=== PATIENT | female | born 1960 | race Caucasian/White ===

== ENCOUNTER 2016-08-17 11:46 | Emergency (ER) | payer OTHER ==
[~2016-08-17] VITALS: Ht 154.9 cm; Wt 36.8 kg
[~2016-08-17 11:46] MED LIST: ALEVE220 M1 PO; ALEVE220 MG PO; ASPIRIN325 MG PO; CIPRO500 MG PO; COLACE100 MG PO; FLOMAX0.4 MG PO; HYDROCODON-ACE1 EAC7 PO; KEFLEX500 MG PO; KENLAOG,ARISTOC60 ML TP; MOBIC7.5 MG PO; MOTRIN800 MG PO; NAPROSYN500 MG PO; NOHOMEMEDS; OXAYDO5 MG PO; OXYCODONE HCL5 MG PO; PERCOCET 5/31 TABLET PO; TYLENOL WITH C1 EACH PO; VENTOLIN HFA18 GM IH; VICODIN ES 7.51 EAC1 PO; ZOFRAN4 MG PO
[2016-08-17 13:17] LABS: HEMATOCRIT 42.6 % (36.0-46.0); MCH 32.4 PG (29.0-34.0); MCHC 33.6 G/DL (30.0-36.0); MCV 96.6 FL (83-99); PLATELET COUNT 275 K/uL (156-360); RBC DIS.WIDTH-CV 13.6 % (11.8-14.6); RBC DIS.WIDTH-SD 46.8 % (39-53); RED BLOOD COUNT 4.41 M/uL (3.80-5.20); WHITE BLOOD COUNT 9.1 K/uL (4.1-10.2)
[2016-08-17 13:21] LABS: CHLORIDE 108 mEq/L (99-109); POTASSIUM 4.2 mEq/L (3.7-5.4); SODIUM 139 mEq/L (136-147)
[2016-08-17 13:23] LABS: GLUCOSE 84 mg/dL (70-99)
[2016-08-17 13:25] LABS: ANION GAP 11 MEQ/L (2-14); TOTAL BILIRUBIN 0.2 mg/dL (0.0-1.0)
[2016-08-17 13:27] LABS: ALKALINE PHOSPHATASE 79 IU/L (3-129); GFR ESTIMATE (CALCULATED) > 59 mL/min/
[2016-08-17 13:28] LABS: UREA NITROGEN (BUN) 16 mg/dL (9-23)
[2016-08-17 13:29] LABS: DIRECT BILIRUBIN 0.1 mg/dL (0.0-0.3)
[2016-08-17 13:30] LABS: LIPASE 45 U/L (1.0-51.0)
[2016-08-17 13:51] LABS: ADD MIUA? YES; BILIRUBIN NEGATIVE; BLOOD NEGATIVE; COLOR YELLOW ((YELLOW)); GLUCOSE (STRIP) NEGATIVE; KETONES NEGATIVE; LEUKOCYTES TRACE; NITRITE NEGATIVE; PROTEIN (STRIP) NEGATIVE; SPECIFIC GRAVITY 1.018 (1.000-1.030); UROBILINOGEN 0.2 MG/DL (0.2-1.0)
[2016-08-17 14:31] LABS: RED BLOOD CELLS NONE SEEN /HPF (0-5)
[2016-08-17 14:32] LABS: BACTERIA 2+ /HPF; EPITHELIAL CELLS 2+ /HPF; MUCUS NONE SEEN /LPF; UCUL ADDED? YES
[2016-08-17] MEDS ORDERED: KEFLEX500 MG PO (14:54)
[2016-08-17] MEDS ORDERED: MOTRIN800 MG PO (14:54)
[2016-08-17] MEDS ORDERED: VALIUM5 MG PO (14:54)
[2016-08-17 15:20] VITALS: BP 133/82
== END 2016-08-17 15:21 | disposition home or self-care (01) ==
LOC: RME 11:46 → EME 11:46 → RME 15:21
DX: S39.012A Strain of muscle, fascia and tendon of lower back, initial encounter (principal); X58.XXXA Exposure to other specified factors, initial encounter; N30.90 Cystitis, unspecified without hematuria; N20.0 Calculus of kidney; R11.10 Vomiting, unspecified; Z87.442 Personal history of urinary calculi; F17.200 Nicotine dependence, unspecified, uncomplicated
CPT/HCPCS: 74176; 80048; 80076; 81003; 83690; 85027; 87077; 87086; 87186; 99281; 99284; J3010

== ENCOUNTER 2016-10-29 13:20 | Emergency (ER) | payer OTHER ==
[~2016-10-29] VITALS: Ht 154.9 cm; Wt 37.0 kg
[~2016-10-29 13:20] MED LIST changes: +VALIUM5 MG PO
[2016-10-29 14:23] LABS: HEMATOCRIT 45.1 % (36.0-46.0); MCH 33.2 PG (29.0-34.0); MCHC 34.4 G/DL (30.0-36.0); MCV 96.6 FL (83-99); MEAN PLAT.VOLUME 9.6 uM^3 (9.5-12.4); PLATELET COUNT 301 K/uL (156-360); RBC DIS.WIDTH-CV 13.3 % (11.8-14.6); RBC DIS.WIDTH-SD 47.8 % (39-53); RED BLOOD COUNT 4.67 M/uL (3.80-5.20); WHITE BLOOD COUNT 9.6 K/uL (4.1-10.2)
[2016-10-29 14:37] LABS: CHLORIDE 104 mEq/L (99-109); POTASSIUM 4.1 mEq/L (3.7-5.4); SODIUM 142 mEq/L (136-147)
[2016-10-29 14:38] LABS: GLUCOSE 105 mg/dL (70-99)
[2016-10-29 14:40] LABS: ANION GAP 12 MEQ/L (2-14)
[2016-10-29 14:42] LABS: GFR ESTIMATE (CALCULATED) > 59 mL/min/
[2016-10-29 14:43] LABS: UREA NITROGEN (BUN) 12 mg/dL (9-23)
[2016-10-29 14:51] LABS: TROP-I INTERPRETATION NEGATIVE; TROPONIN-I < 0.01 ng/mL (0.0-0.30)
[2016-10-29 15:56] LABS: TROP-I INTERPRETATION NEGATIVE; TROPONIN-I < 0.01 ng/mL (0.0-0.30)
[2016-10-29 16:44] VITALS: BP 136/87
== END 2016-10-29 16:45 | disposition home or self-care (01) ==
LOC: EME 13:20
PROVIDERS: Emergency Medicine
DX: R07.9 Chest pain, unspecified (principal); F17.200 Nicotine dependence, unspecified, uncomplicated; Z87.442 Personal history of urinary calculi
CPT/HCPCS: 71020; 80048; 84484; 85027; 93005; 99281; 99284

== ENCOUNTER 2017-01-05 15:24 | Emergency (ER) | payer OTHER ==
[~2017-01-05] VITALS: Ht 154.9 cm; Wt 35.1 kg
[2017-01-05 16:24] LABS: HEMATOCRIT 45.5 % (36.0-46.0); MCHC 33.6 G/DL (30.0-36.0); MCV 98.1 FL (83-99); MEAN PLAT.VOLUME 9.9 uM^3 (9.5-12.4); PLATELET COUNT 275 K/uL (156-360); RBC DIS.WIDTH-CV 13.3 % (11.8-14.6); RBC DIS.WIDTH-SD 48.1 % (39-53); RED BLOOD COUNT 4.64 M/uL (3.80-5.20); WHITE BLOOD COUNT 8.6 K/uL (4.1-10.2)
[2017-01-05 16:31] LABS: CHLORIDE 104 mEq/L (99-109)
[2017-01-05 16:32] LABS: POTASSIUM 3.8 mEq/L (3.7-5.4); SODIUM 140 mEq/L (136-147)
[2017-01-05 16:33] LABS: GLUCOSE 57 mg/dL (70-99)
[2017-01-05 16:35] LABS: ANION GAP 10 MEQ/L (2-14)
[2017-01-05 16:37] LABS: GFR ESTIMATE (CALCULATED) 55 mL/min/
[2017-01-05 16:38] LABS: UREA NITROGEN (BUN) 16 mg/dL (9-23)
[2017-01-05 18:09] LABS: ADD MIUA? YES; BILIRUBIN NEGATIVE; BLOOD NEGATIVE; COLOR YELLOW ((YELLOW)); GLUCOSE (STRIP) NEGATIVE; KETONES NEGATIVE; LEUKOCYTES TRACE; NITRITE NEGATIVE; PROTEIN (STRIP) 30; SPECIFIC GRAVITY 1.023 (1.000-1.030)
[2017-01-05 18:51] LABS: BACTERIA RARE /HPF; EPITHELIAL CELLS RARE /HPF; MUCUS TRACE /LPF; UCUL ADDED? NO
[2017-01-05] MEDS ORDERED: ULTRAM50 MG PO (19:28)
[2017-01-05] MEDS ORDERED: MOTRIN600 MG PO (19:28)
[2017-01-05] MEDS ORDERED: FLOMAX0.4 MG PO (19:28)
[2017-01-05] MEDS ORDERED: KEFLEX500 MG PO (19:41)
[2017-01-05 20:00] VITALS: BP 183/83
== END 2017-01-05 20:03 | disposition home or self-care (01) ==
LOC: EME 15:24
PROVIDERS: Nurse Practitioner Family
DX: N20.0 Calculus of kidney (principal); F17.200 Nicotine dependence, unspecified, uncomplicated; J44.9 Chronic obstructive pulmonary disease, unspecified; R07.9 Chest pain, unspecified
CPT/HCPCS: 71020; 74176; 80048; 81003; 85027; 93005; 99281; 99284

== ENCOUNTER 2017-11-29 14:16 | Emergency (ER) | payer OTHER ==
[~2017-11-29] VITALS: Ht 154.9 cm; Wt 34.9 kg
[~2017-11-29 14:16] MED LIST changes: +MOTRIN600 MG PO; +ULTRAM50 MG PO
[2017-11-29 16:25] VITALS: BP 126/72
== END 2017-11-29 16:25 | disposition home or self-care (01) ==
LOC: EME 14:16
DX: S92.112A Displaced fracture of neck of left talus, initial encounter for closed fracture (principal); W22.8XXA Striking against or struck by other objects, initial encounter; F17.200 Nicotine dependence, unspecified, uncomplicated
CPT/HCPCS: 73610; 73630; 99281; 99284

== ENCOUNTER 2018-01-11 08:28 | Emergency (ER) | payer OTHER ==
[~2018-01-11] VITALS: Ht 152.4 cm; Wt 33.3 kg
[2018-01-11 10:24] LABS: HEMATOCRIT 43.2 % (36.0-46.0); MCH 33.3 PG (29.0-34.0); MCHC 34.7 G/DL (30.0-36.0); PLATELET COUNT 285 K/uL (156-360); RBC DIS.WIDTH-CV 13.3 % (11.8-14.6); RBC DIS.WIDTH-SD 47.4 % (39-53); WHITE BLOOD COUNT 7.3 K/uL (4.1-10.2)
[2018-01-11 10:33] LABS: ALBUMIN 4.2 g/dL (3.2-4.8); CHLORIDE 104 mEq/L (99-109); POTASSIUM 4.3 mEq/L (3.7-5.4); SODIUM 139 mEq/L (136-147)
[2018-01-11 10:35] LABS: GLUCOSE 86 mg/dL (70-99); TOTAL PROTEIN 7.5 g/dL (6.4-8.3)
[2018-01-11 10:37] LABS: TOTAL BILIRUBIN 0.4 mg/dL (0.0-1.0)
[2018-01-11 10:39] LABS: ALKALINE PHOSPHATASE 80 IU/L (3-129); CREATININE 0.8 mg/dL (0.6-1.3); GFR ESTIMATE (CALCULATED) > 59 mL/min/
[2018-01-11 10:40] LABS: UREA NITROGEN (BUN) 10 mg/dL (9-23)
[2018-01-11 10:41] LABS: AST (GOT) 20 IU/L (2-34)
[2018-01-11 10:42] LABS: ALT (GPT) 11 IU/L (3-49)
[2018-01-11 10:43] LABS: TROP-I INTERPRETATION NEGATIVE; TROPONIN-I < 0.01 ng/mL (0.0-0.30)
[2018-01-11] MEDS ORDERED: LIDODERM 5% P1 PATCH TD (11:16)
[2018-01-11] MEDS ORDERED: MOBIC7.5 MG PO (11:16)
[2018-01-11 11:30] VITALS: BP 110/78
== END 2018-01-11 11:33 | disposition home or self-care (01) ==
LOC: EME 08:28
PROVIDERS: Nurse Practitioner Family
DX: M54.12 Radiculopathy, cervical region (principal); R07.89 Other chest pain; F17.200 Nicotine dependence, unspecified, uncomplicated; Z88.5 Allergy status to narcotic agent; Z88.6 Allergy status to analgesic agent
CPT/HCPCS: 71046; 73060; 80053; 84484; 85027; 93005; 99281; 99283